=== PATIENT | male | born 1970 | race Caucasian/White ===

== ENCOUNTER 2018-06-09 07:07 | Inpatient (IN) | payer OTHER | END 2018-06-10 11:19 | disposition home or self-care (01) | LOC: PAS IN 07:07 → ORTHO 4S 14:45 | PROC: 0RRJ0JZ Replacement of Right Shoulder Joint with Synthetic Substitute, Open Approach (ICD-10-PCS; principal; 2018-06-09 10:36) | DX: M19.111 Post-traumatic osteoarthritis, right shoulder (principal) ==